=== PATIENT | female | born 1960 | race Caucasian/White ===

== ENCOUNTER → 2016-12-21 | Outpatient (CLI) | payer OTHER ==
[~2016-12-21] MED LIST: BIOTIN1 MG PO; FLAGYL500 MG PO; KLONOPIN WAFE0.25 MG PO; LEVAQUIN 5500 MG/TA1 PO; PAXIL 10MG10 MG PO
== END ==
LOC: MC.RAD 11:40
DX: Z12.31 Encounter for screening mammogram for malignant neoplasm of breast (principal)